=== PATIENT | female | born 2005 | race Caucasian/White ===

== ENCOUNTER 2024-06-07 21:15 | Emergency (ER) | payer SELFPAY ==
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
[2024-06-07 21:26] VITALS: BP 136/84; PULSE 94; O2SAT 99
[2024-06-07 21:39] VITALS: BP 105/76; PULSE 86; RESP 16; TEMP 36.9; O2SAT 98; BMI 19.8
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
[2024-06-08 01:24] VITALS: BP 131/76; PULSE 88; RESP 18; TEMP 36.9; O2SAT 98
[2024-06-08 01:25] VITALS: BP 131/76; PULSE 88; RESP 18; TEMP 36.9; O2SAT 98
== END 2024-06-08 01:25 | disposition home or self-care (01) ==
PROVIDERS: Emergency Provider Emergency Medicine
DX: S80.01XA Contusion of right knee, initial encounter (principal); V43.52XA Car driver injured in collision with other type car in traffic accident, initial encounter; Y93.89 Activity, other specified; Y92.414 Local residential or business street as the place of occurrence of the external cause; Y99.9 Unspecified external cause status
CPT/HCPCS: 73564; 99283

== ENCOUNTER → 2024-06-07 22:00 | Outpatient (BNV) | payer SELFPAY | PROVIDERS: Visit Provider Radiology Diagnostic Radiology | DX: M25.561 Pain in right knee (principal); Z04.3 Encounter for examination and observation following other accident | CPT/HCPCS: 73564 ==